=== PATIENT | female | born 1950 | race Hispanic/Latino ===

== ENCOUNTER 2018-03-14 06:07 | Day surgery (SDC) | payer MEDICARE ==
[~2018-03-14] VITALS: Ht 147.3 cm; Wt 56.4 kg
[~2018-03-14 06:07] MED LIST: AMLO5TAB7 PO; DOCU100C33 PO; LISI10TA7 PO; METF-444 PO; SODIUM CHLORIDE 0.9% 1000ML 1,000 ML IV ONE
[2018-03-14 06:47] VITALS: BP 155/56
[2018-03-14 10:12] VITALS: BP 125/44
[2018-03-14 10:17] VITALS: BP 143/67
[2018-03-14 10:22] VITALS: BP 153/74
[2018-03-14 10:27] VITALS: BP 149/73
[2018-03-14 10:32] VITALS: BP 144/75
== END 2018-03-14 10:55 | disposition home or self-care (01) ==
LOC: ENDO 06:07 → DAH 06:07 → ENDO 10:55
PROVIDERS: ATTEND Internal Medicine Gastroenterology
DX: Z12.11 Encounter for screening for malignant neoplasm of colon (principal); K62.89 Other specified diseases of anus and rectum; I10 Essential (primary) hypertension; K64.9 Unspecified hemorrhoids; E11.9 Type 2 diabetes mellitus without complications; N76.89 Other specified inflammation of vagina and vulva; Z86.010 Personal history of colon polyps; Z98.0 Intestinal bypass and anastomosis status; Z79.84 Long term (current) use of oral hypoglycemic drugs; Z79.899 Other long term (current) drug therapy; Z93.3 Colostomy status
CPT/HCPCS: 44388; 45331; 82948 ×2; 88305; 93005; A4606; J7030; 45388

== ENCOUNTER → 2019-10-10 | Outpatient (CLI) | payer MEDICARE ==
[~2019-10-10] MED LIST changes: -AMLO5TAB7 PO; +AMLO5TAB9 PO; -SODIUM CHLORIDE 0.9% 1000ML 1,000 ML IV ONE
== END | disposition home or self-care (01) ==
LOC: RAH 09:49
PROVIDERS: ATTEND Internal Medicine
DX: Z12.31 Encounter for screening mammogram for malignant neoplasm of breast (principal)
CPT/HCPCS: 77067

== ENCOUNTER → 2020-10-27 | Outpatient (CLI) | payer MEDICARE ==
[~2020-10-27] MED LIST changes: +AMLO-257 PO; -AMLO5TAB9 PO; +LISI10TA24 PO; -LISI10TA7 PO
== END | disposition home or self-care (01) ==
LOC: OIH 10:10
PROVIDERS: ATTEND Internal Medicine
DX: M17.12 Unilateral primary osteoarthritis, left knee (principal)
CPT/HCPCS: 73560

== ENCOUNTER → 2021-11-30 | Outpatient (CLI) | payer MEDICARE | END | disposition home or self-care (01) | LOC: RAH 13:14 | PROVIDERS: ATTEND Internal Medicine | DX: Z12.31 Encounter for screening mammogram for malignant neoplasm of breast (principal) | CPT/HCPCS: 77067 ==

== ENCOUNTER 2023-11-11 06:35 | Day surgery (SDC) | payer OTHER, MEDICARE ==
[2023-11-08 11:15] LABS: HEMATOCRIT 35.9 % (36-48); MEAN CORPUSCULAR HGB CONC 32.6 g/dL (32.0-36.0); MEAN CORPUSCULAR VOLUME 95.2 fL (79-99); RED BLOOD CELL COUNT(AUTO) 3.77 MIL/uL (4.00-5.50); RED CELL DISTRIBUTION WIDTH 14.5 % (11.0-15.5); WHITE BLOOD COUNT (AUTO) 9.9 K/uL (4.8-10.8)
[2023-11-08 11:25] LABS: CREATININE 2.4 mg/dL (0.5-1.0); POTASSIUM 3.8 mmol/L (3.5-5.1)
[2023-11-08 11:27] LABS: INR <= 0.93 (0.85-1.15); PROTHROMBIN TIME 10.3 SEC (9.6-11.6)
[2023-11-08 11:29] LABS: PARTIAL THROMBOPLASTIN TIME 34.5 SEC (26.3-35.5)
[2023-11-08 11:55] VITALS: BP 143/66; PULSE 70; RESP 18
[~2023-11-11] VITALS: Ht 149.9 cm; Wt 83.5 kg
[2023-11-11] VITALS (16 sets, daily range): BP systolic 109–168; BP diastolic 45–78; PULSE 58–75; RESP 12–19
[~2023-11-11 06:35] MED LIST changes: +AEC81 PO; -AMLO-257 PO; +AMLO-258 PO; +CETI10TA57 PO; -DOCU100C33 PO; +FOLI0.8T22 PO; +GLIM4TAB36 PO; -LISI10TA24 PO; -METF-444 PO; +METO-409 PO; +OMEP20CA12 PO; +ROSU10TA28 PO; +SEVE800T27 PO; +TORS20TA4 PO; +VITAMIN C PO; +VITAMIN E PO
[2023-11-11] MEDS ORDERED: 0.9% NACL 500ML IV.SOLN 500 ML IV ONE (08:52)
[2023-11-11] MEDS ORDERED: CEFAZOLIN SODIUM 2 GM VIAL ONE (08:52)
[2023-11-11 09:05] LABS: CREATININE 4.3 mg/dL (0.5-1.0); POTASSIUM 4.4 mmol/L (3.5-5.1)
[2023-11-11] MEDS ORDERED: CEFAZOLIN SODIUM 1 GM VIAL ONE (09:10)
[2023-11-11] MEDS ORDERED: DEXAMETHASONE SOD PHOSPHATE 10MG/ML 1ML VIAL ONE (09:50)
[2023-11-11] MEDS ORDERED: MIDAZOLAM HCL 1 MG/ML 2ML VIAL ONE (09:50)
[2023-11-11] MEDS ORDERED: LIDOCAINE PF 100MG/5ML (2%) SYRINGE 5ML ONE (09:50)
[2023-11-11] MEDS ORDERED: NEOSTIGMINE METHYLSULFATE 1MG/ML IV ONE (09:51)
[2023-11-11] MEDS ORDERED: ROCURONIUM BROMIDE 10MG/1ML 5ML VL ONE (09:51)
[2023-11-11] MEDS ORDERED: PROPOFOL 10 MG/ML 20ML VIAL IV ONE (09:51)
[2023-11-11] MEDS ORDERED: GLYCOPYRROLATE 0.2 MG/ML 5 ML VIAL ONE (09:51)
[2023-11-11] MEDS: CEFAZOLIN SODIUM 2 GM VIAL IVPB ONE (10:01)
[2023-11-11] MEDS ORDERED: EPHEDRINE SULFATE 50 MG/ML AMPULE ONE (10:11)
[2023-11-11] MEDS ORDERED: PROTAMINE SULFATE 10 MG/ML 25ML VIAL IV ONE (10:38)
[2023-11-11] MEDS ORDERED: PROTAMINE SULFATE 10 MG/ML 5 ML VIAL ONE (10:38)
[2023-11-11] MEDS ORDERED: MEPERIDINE-PF 25 MG/ML SYG ONE (10:49)
[2023-11-11] MEDS: ACETAMINOPHEN 1,000 MG/100 ML VIAL IV ONE (11:51)
[2023-11-11] MEDS: ONDANSETRON 4MG INJ ONE (11:52)
[2023-11-11] MEDS: MEPERIDINE-PF 25 MG/ML SYG ONE (11:52)
== END 2023-11-11 12:44 | disposition home or self-care (01) ==
LOC: DAH 06:35
PROVIDERS: ATTEND Thoracic Surgery (Cardiothoracic Vascular Surgery)
DX: E11.22 Type 2 diabetes mellitus with diabetic chronic kidney disease (principal); I12.0 Hypertensive chronic kidney disease with stage 5 chronic kidney disease or end stage renal disease; N18.6 End stage renal disease; E78.5 Hyperlipidemia, unspecified; I25.2 Old myocardial infarction; Z99.2 Dependence on renal dialysis; Z79.01 Long term (current) use of anticoagulants; Z79.899 Other long term (current) drug therapy; Z79.82 Long term (current) use of aspirin
CPT/HCPCS: 71045; 80048 ×2; 85027; 85610; 85730; 86850 ×2; 86900 ×2; 86901 ×2; 36415 ×2; 93005; 36821; 82948 ×2; A6260; J7040 ×2; J7030; J0690 ×4; J1100; J3490 ×3; J2001; J2250; J2704; J2405; J2710; J2175 ×2; J1644; A6219; A4649 ×2; C1713 ×2; A4930; A4215; A4213; A4222; A4221; A4663; A4216; J2720 ×2; A4223 ×2; G0168

== ENCOUNTER 2024-03-23 06:42 | Day surgery (SDC) | payer OTHER, MEDICARE ==
[2024-03-22 11:59] LABS: HEMATOCRIT 43.9 % (36-48); MEAN CORPUSCULAR HEMOGLOBIN 32.6 pg (27.0-33.0); MEAN CORPUSCULAR HGB CONC 32.3 g/dL (32.0-36.0); MEAN CORPUSCULAR VOLUME 100.7 fL (79-99); RED BLOOD CELL COUNT(AUTO) 4.36 MIL/uL (4.00-5.50); RED CELL DISTRIBUTION WIDTH 12.8 % (11.0-15.5); WHITE BLOOD COUNT (AUTO) 9.8 K/uL (4.8-10.8)
[2024-03-22 12:00] VITALS: BP 177/72; PULSE 74; RESP 18
[2024-03-22 12:15] LABS: CREATININE 2.5 mg/dL (0.5-1.0); POTASSIUM 5.8 mmol/L (3.5-5.1)
[2024-03-22 12:50] LABS: INR 0.96 (0.85-1.15); PROTHROMBIN TIME 10.4 SEC (9.6-11.6)
[2024-03-22 12:52] LABS: PARTIAL THROMBOPLASTIN TIME 28.2 SEC (26.3-35.5)
[~2024-03-23] VITALS: Ht 147.3 cm; Wt 87.7 kg
[2024-03-23] VITALS (16 sets, daily range): BP systolic 113–157; BP diastolic 52–70; PULSE 64–77; RESP 12–21
[~2024-03-23 06:42] MED LIST changes: -AMLO-258 PO; +ASCO500T20 PO; -CETI10TA57 PO; +CHOL100040 PO; +OMEG100033 PO; -ROSU10TA28 PO; +ROSU10TA72 PO; +VITA-348 PO; -VITAMIN C PO; -VITAMIN E PO
[2024-03-23] MEDS ORDERED: FAMOTIDINE 20MG VIAL IV ONE (07:25)
[2024-03-23] MEDS ORDERED: acetaMINOPHEN 1,000 MG/100 ML VIAL IV ONE (07:25)
[2024-03-23] MEDS ORDERED: 0.9% NACL 500ML IV.SOLN 500 ML IV ONE (07:45)
[2024-03-23] MEDS ORDERED: LIDOCAINE PF 100MG/5ML (2%) SYRINGE 5ML ONE ×2 (07:59→13:18)
[2024-03-23] MEDS ORDERED: FENTanyl CITRate PF 50 MCG/1 ML 2ML VIAL ONE ×2 (08:00→13:19)
[2024-03-23] MEDS ORDERED: proPOFol 10 MG/ML 20ML VIAL IV ONE ×2 (08:00→13:19)
[2024-03-23] MEDS ORDERED: rocuRONium bROMide 10MG/1ML 5ML VL ONE ×2 (08:03→13:19)
[2024-03-23] MEDS ORDERED: HEParin-NS 1,000 UNIT/500 ML 500 ML IV ONE (08:48)
[2024-03-23] MEDS ORDERED: SUCCINYLCHOLINE CHLORIDE 20 MG/ML 10 ML VIAL ONE (13:18)
[2024-03-23] MEDS ORDERED: MIDAZOLAM HCL 1 MG/ML 2ML VIAL ONE (13:18)
[2024-03-23] MEDS ORDERED: GLYCOPYRROLATE 0.2 MG/ML 5 ML VIAL ONE (13:18)
[2024-03-23] MEDS ORDERED: dexaMETHasone SOD PHOSPHATE 10MG/ML 1ML VIAL ONE (13:18)
[2024-03-23] MEDS ORDERED: NEOSTIGMINE METHYLSULFATE 1MG/ML IV ONE (13:19)
[2024-03-23] MEDS ORDERED: ONDANSETRON 4MG INJ ONE (13:19)
[2024-03-23] MEDS ORDERED: KETAMINE 50MG/ML SYRINGE 50 MG/ML DISP.SYRIN ONE (13:24)
[2024-03-23] MEDS: ceFAZolin SODIUM 2 GM VIAL ONE (13:41)
[2024-03-23] MEDS: ceFAZolin SODIUM 1 GM VIAL ONE (14:05)
[2024-03-23] MEDS: LIDOCAINE HCL 1% 20 ML VIAL ONE (15:15)
[2024-03-23] MEDS: BUPIvacaine/PF 0.25% 30ML VIAL IJ ONE (15:15)
[2024-03-23] MEDS ORDERED: SUGAMMADEX SODIUM 200 MG/2 ML VIAL IV ONE (15:18)
== END 2024-03-23 17:25 | disposition home or self-care (01) ==
LOC: DAH 06:42 → EDSTATUS 10:00 → DAH 17:25
PROVIDERS: ATTEND Thoracic Surgery (Cardiothoracic Vascular Surgery)
DX: I77.0 Arteriovenous fistula, acquired (principal); I12.0 Hypertensive chronic kidney disease with stage 5 chronic kidney disease or end stage renal disease; E11.22 Type 2 diabetes mellitus with diabetic chronic kidney disease; N18.6 End stage renal disease; E78.5 Hyperlipidemia, unspecified; Z90.710 Acquired absence of both cervix and uterus; Z98.890 Other specified postprocedural states; Z79.899 Other long term (current) drug therapy
CPT/HCPCS: 80048; 85027; 85610; 85730; 86850; 86900; 86901; 36415 ×2; 71045; 93005; 36832; 84132; 82948 ×2; A6260; A4663; A6207; J7030; A4215 ×2; A4452; J7040; J3490 ×5; J3010; J0690 ×2; J1100; J0330; J0665; J2001 ×2; J2250; J2704 ×2; J2405; J2710; J1644; A6446; A4649 ×3; C1713 ×2; A4657; A4213; A4222; A4221; A4216; A4223 ×2; G0168